=== PATIENT | female | born 1950 | race Caucasian/White ===

== ENCOUNTER 2017-08-18 21:55 | Inpatient (IN) | payer MEDICARE, OTHER ==
[2017-08-18 22:35] LABS: #Basophils 0.1 thou/uL (0.0-0.2); #Eosinphils 0.1 thou/uL (0.0-0.7); #Lymphocytes 1.8 thou/uL (1.20-3.40); #Monocytes 0.5 thou/uL (0.11-0.59); #Neutrophils 3.1 thou/uL (1.40-6.50); %Basophils 0.9 % (0.0-1.0); %Eosinophils 2.1 % (0.0-10.0); %Lymphocytes 32.7 % (21.0-51.0); %Monocytes 9.2 % (0.0-10.0); Hematocrit 46.9 % (36.0-47.0); Mean Platelet Volume 8.3 fL (7.4-10.4); Red Blood Cell (RBC) Count 4.66 mill/uL (4.20-5.40); White Blood Cell (WBC) Count 5.6 thou/uL (4.8-10.8)
[2017-08-18] MEDS ORDERED: Diltiazem 125 MG/25 ML ONE (22:47)
[2017-08-18 22:58] LABS: ALT (SGPT) 23 U/L (8-55); AST (SGOT) 21 U/L (5-34); Alkaline Phosphatase 79 U/L (40-150); Anion Gap 14 mmol/L (10-20); BUN (Urea Nitrogen) 22 mg/dL (9.8-20.1); Bilirubin, Total 0.5 mg/dL (0.2-1.2); CK (CPK) 56 U/L (29-168); Calc. Creatinine Clearance 0 mL/min (70-130); Calcium 9.9 mg/dL (7.8-10.44); Carbon Dioxide 24 mmol/L (23-31); Chloride 111 mmol/L (98-107); Estimated GFR-MDRD 72; Protein, Total 6.9 g/dL (6.0-8.3)
[2017-08-18] MEDS ORDERED: Diltiazem HCl 125 MG, Admixture Fee 1 EACH in Sodium Chloride 0.9% 100 ML SLOW IVP SCH (23:00)
--- NOTE | 2017-08-18 23:01 | RAD ---
AP VIEW OF THE CHEST 08/18/17 INDICATION: Chest pain. COMPARISON: Prior exam dated 06/01/16. IMPRESSION: Mild left basilar atelectasis. Remainder of the examination is within normal limits. COMMENTS: Right lung is clear. The cardiomediastinal silhouette is within normal limits. There is subsegmental atelectasis within the left lung base. No acute osseous abnormality is evident. POS: [facility]
[2017-08-18 23:21] LABS: Bilirubin Negative (Negative); Blood, Urine Negative (Negative); Glucose, Urine (Dipstick) Negative (Negative); Ketone, Urine 15 mg/dL (Negative); Nitrite Negative (Negative); Protein, Urine (Dipstick) Negative (Neg-Trace); Urobilinogen 0.2 mg/dL (0.2-1.0)
[2017-08-18 23:23] LABS: Bacteria/HPF None Seen HPF (None Seen); Hyaline Casts/LPF 0-3 HYALINE CAST LPF (0-3 Hyaline); RBC/HPF 0-3 HPF (0-3); Squamous Epithelial 0-3 HPF (0-3)
[2017-08-19] MEDS ORDERED: Acetaminophen 325 MG TAB PO PRN (01:46)
[2017-08-19] MEDS ORDERED: Ondansetron HCl/PF 4 MG/2 ML Vial IVP PRN (01:46)
[2017-08-19] MEDS ORDERED: Ondansetron ODT 4 MG TAB SL PRN (01:46)
[2017-08-19 01:59] VITALS: BMI 36.8
[2017-08-19 02:02] LABS: Troponin I 0.048 ng/mL (< 0.028)
[2017-08-19 05:11] LABS: Troponin I 0.073 ng/mL (< 0.028)
[2017-08-19] MEDS: Levothyroxine Sodium 100 MCG TAB PO SCH (05:43)
--- NOTE | 2017-08-19 07:32 | HP-2 ---
DATE OF ADMISSION: 08/19/2017 DATE OF SERVICE: 08/19/2017 ATTENDING AND CO-SIGNER: Dr. Montes. CODE STATUS: FULL. PRIMARY CARE PHYSICIAN: Dr. Voss. RESIDENT: Dr. Adrianne Gibson. HISTORIAN: Patient. CHIEF COMPLAINT: Atrial fibrillation and palpitations. HISTORY OF PRESENT ILLNESS: This is a 67-year-old female with a history of chronic atrial fibrillation with rapid ventricular response, complains of palpitations and chest pain. The patient says she took 2 baby aspirins at home , which did relieve some of the chest pain. She also endorses a headache, but denies shortness of breath. She also endorses a recent upper respiratory tract infection and some subjective fevers. The patient says with the chest pain, she also had sharp jaw pain. She describes the chest pain as shooting and extending down her arm. She says she has had a stress test done in the past. The patient says that sometimes if her TSH level was elevated, can trigger her atrial fibrillation. ER: The patient received 20 mg IV push of diltiazem and then was placed on diltiazem drip at 5 mg per hour. PAST MEDICAL HISTORY: The patient has history of atrial fibrillation with RVR, lipedema and secondary lymphedema and hypothyroidism. PAST SURGICAL HISTORY: Appendectomy, cholecystectomy, and tonsillectomy. ALLERGIES: PHENERGAN. MEDICATIONS: Temazepam, celecoxib, Eliquis, sotalol, levothyroxine, cyclobenzaprine, cranberry juice. SOCIAL HISTORY: Denies tobacco, alcohol, and drug use. REVIEW OF SYSTEMS: General: Denies fevers and chills. Endorses URI symptoms. Cardiovascular: Denies chest pain, palpitation. Respiratory: Less shortness of breath. Endorses some cough, congestion. Gastrointestinal: Denies nausea, vomiting. Genitourinary: Denies incontinence or dysuria. Neurologic: Denies weakness or numbness. Psychiatric: Denies anxiety or depression. PHYSICAL EXAMINATION: VITAL SIGNS: Blood pressure 133/76, pulse of 105, ranging from 87-130, T-max 97.6, pulse ox 95% on room air, current weight 117 kilograms. GENERAL: Alert and oriented x4, no apparent distress, well-developed, well- nourished, obese, appropriately interactive. EYES: Pupils equal, round, and reactive to light and accommodation. Extraocular muscles intact. ENT: Nasal mucosa within normal limits. NECK: Supple, no lymphadenopathy, no thyromegaly. CARDIOVASCULAR: Regular rate and rhythm. No murmur, rub or gallop. A 2+ pedal and radial pulses. RESPIRATORY: Normal effort, no retractions, clear to auscultation bilaterally. ABDOMEN: Soft, nontender to palpation. Bowel sounds in all 4 quadrants. No masses or distention. MUSCULOSKELETAL: Not within normal limits. The patient has lipedema and secondary lymphedema. NEUROLOGIC: No focal deficits. LABORATORY DATA: CBC: White blood cell count 5.6, hemoglobin 15.4, hematocrit 46.9, platelets 222. CMP: Sodium 145, potassium 4, chloride 111, bicarbonate 24, BUN 22, creatinine 0.8, glucose 93, GFR 72. CK 56, CK-MB 1.2, troponin 0.010. Lipase 51. UA specific gravity 1.013. Blood, protein, nitrites negative. Leukocyte esterase small, ketones 15, white blood cells 7-10, bacteria none, squamous 0-3. Coag: INR 1.1, PT 14, PTT 42, and TSH 1.7. IMAGING: EKG fibrillation with rapid ventricular response. Chest x-ray, mild left basilar atelectasis. ASSESSMENT AND PLAN: This is a 67-year-old female with a past medical history of atrial fibrillation with rapid ventricular response, admitted for atrial fibrillation with rapid ventricular response. 1.Atrial Fibrillation with RVR: The patient was admitted overnight and will be monitored in tele. The patient was placed on a diltiazem drip, which was titrated up from 5 to 7.5 and now to 10. We started the patient on her home with medicine of [facility]. We will attempt to titrate the patient off the drip if her heart rate is within normal limits and there is no evidence of rapid ventricular response. 2. Hypothyroidism. We will restart patient's home medications of levothyroxine. 3. Lipedema. We will monitor. 4. Lymphedema. We will continue to monitor. Disposition and length of stay: 2 days. Symptomatic medications will be provided. History and physical exam as well as management discussed with Dr. Montes. NESS
[2017-08-19] MEDS: Apixaban 5 MG TAB PO SCH ×2 (08:12→20:34)
--- NOTE | 2017-08-19 08:13 | CT ---
PRELIMINARY REPORT/[facility]/EMERGENCY AFTER HOURS PROCEDURE: EXAM: CT Angiography Chest With Intravenous Contrast CLINICAL HISTORY: 67 years old, female; Pain and signs and symptoms; Cough; Symptoms not specified; Chest pain; Patient HX: Er 25; F67 presents to ed C/O cp, onset approx. 1900. At onset, pt was watching tv and working o n emails. Pt took asa x 2. Reports she was clutching chest with the pain. Associated with WISE. She too k her nighttime medications early. Similar pmh x 3. Pt notes recent uri (with fever). Denies SOB. TECHNIQUE: Axial computed tomographic angiography images of the chest with intravenous contrast using pulmonary embolism protocol. CONTRAST: 63 mL of ISO 370 administered intravenously. COMPARISON: No relevant prior studies available. FINDINGS: Pulmonary arteries: No acute findings. No evidence of pulmonary embolism. Vasculature: No acute findings. No thoracic aortic aneurysm. Lungs: No mass. No consolidation. Few tiny nonspecific nodular opacities. Mild basilar and peripheral scarring. Pleural space: No acute findings. No significant effusion. No pneumothorax. Heart: No acute findings. No cardiomegaly. No significant pericardial effusion. Bones/joints: No acute fracture. No dislocation. Soft tissues: No acute findings. Lymph nodes: No acute findings. No enlarged lymph nodes. IMPRESSION: No evidence of pulmonary embolism. Thank you for allowing us to participate in the care of your patient. Dictated and Authenticated by: Rodney Huber MD 08/19/2017 1:06 AM Central Time ([place] & [place]) FINAL REPORT EMERGENT AFTER HOURS CT ANGIO OF CHEST PERFORMED WITH INTRAVENOUS CONTRAST ENHANCEMENT WITH 3D RECONS TRUCTIONS: HISTORY: Chest pain. FINDINGS: The lungs are clear of any infiltrative process. No pleural effusions. No significant mediastinal or hilar adenopathy. The thoracic aorta is normal in caliber. There is good pulmonary artery opacification. There is no CT evidence for pulmonary embolus. Visualized liver parenchyma shows no findings. Gallbladder has been removed. IMPRESSION: 1. No CT evidence of pulmonary embolus. 2. This report is in agreement with the temporary report issued by [facility]. POS: [facility]
[2017-08-19 08:26] LABS: Troponin I 0.052 ng/mL (< 0.028)
[2017-08-19] MEDS ORDERED: Aspirin 325 MG TAB PO SCH (09:00)
[2017-08-19] MEDS ORDERED: CeleCOXIB 100 MG CAP PO SCH (09:00)
[2017-08-19] MEDS ORDERED: Diltiazem 125 MG in Sodium Chloride 0.9% 100 ML IVPB SCH (11:00)
--- NOTE | 2017-08-19 12:25 | HP ---
I have reviewed the history and physical of Dr. Adrianne Gibson and agreed with her assessment and plan. Briefly, Ms. Rivas is a very pleasant 67-year-old white female patient who has a history of recurrent atrial fibrillation. She presented to our emergency room with some shortness of breath and was noted to have atrial fibrillation with RVR. She has been admitted and is currently on a diltiazem infusio n. She denies any significant shortness of breath at this time, although she has had some chest pain occurring at rest. Of note, it is the fact that she several hours prior to this episode took a coug h and cold medication that contained phenylephrine. PHYSICAL EXAMINATION: VITAL SIGNS: Her blood pressure is 130/70, her pulse rate is 120 and irregularly irregular. She is afebrile. Her pulse ox room air is 95%. GENERAL: Ms. Rivas is very pleasant, awake, alert, in no distress. No chest pain, no shortness of br eath. EAR, NOSE, AND THROAT: Clear. NECK: Supple, no JVD. CARDIAC: PMI is in the fifth intercostal space. Rhythm is irregularly irregular with a rate of appr oximately 120. LUNGS: Clear to auscultation. ABDOMEN: Flat and soft without guarding, rebound or rigidity. NEUROLOGIC: She has no focal deficits. LABORATORY DATA: CBC: White count is 5,600, hemoglobin 15.4. Her sodium is 145, potassium 4, chlor cody 111, bicarbonate 24, BUN 22, creatinine 0.8, and glucose is 93. Her troponins are trending negat kyra. ASSESSMENT: Atrial fibrillation with rapid ventricular response. PLAN: She is already on a diltiazem drip. She had been on sotalol prior to this episode. We will a lso consult Cardiology. She has held discussions in the past with her PCP and medical staff coordinator regarding the possibility of ablation and this will be discussed further with Cardiology.
[2017-08-19] MEDS ORDERED: Iopamidol 370 76% 100 ML VIAL ONE (13:42)
[2017-08-19] MEDS ORDERED: Sotalol HCl 80 MG TAB PO SCH (15:00)
--- NOTE | 2017-08-19 15:47 | CON ---
DATE OF CONSULTATION: 08/19/2017 REASON FOR CONSULTATION: Atrial fibrillation with RVR. PRIMARY FOREST ECOLOGY PROFESSOR: Yasmani Robbins M.D. REFERRING PROVIDER: Amandeep Montes M.D. HISTORY OF PRESENT ILLNESS: Ms. Rivas is a very pleasant 61-year-old woman with a history of paroxysm al atrial fibrillation. She has been seen and evaluated by EP in addition to Dr. Yasmani Robbins. She has been on sotalol in addition to anticoagulation therapy. She presents with atrial fibrillation w ith RVR. She did have palpitations. Her last episode for her account was one year ago. She was see n and evaluated by EP 6 months ago and was told to follow up in a year given how well she had been do ing on sotalol. PAST MEDICAL HISTORY: Paroxysmal atrial fibrillation and lymphedema. PAST SURGICAL HISTORY: Appendectomy, cholecystectomy, and tonsillectomy. ALLERGIES: PHENERGAN. HOME MEDICATIONS: Include Eliquis, sotalol, levothyroxine, cyclobenzaprine, cranberry juice. SOCIAL HISTORY: No current tobacco or alcohol use. REVIEW OF SYSTEMS: Ten point review of systems is reviewed and as above, otherwise negative. PHYSICAL EXAMINATION: GENERAL: Patient is a pleasant female who is in no acute distress. The patient appears her stated a ge. VITAL SIGNS: Blood pressure 118/75, pulse 84, temperature 98.2. NEUROLOGIC: The patient is alert and oriented times 3 with no focal neurologic deficits. HEENT: Sclerae without icterus. Mouth has moist mucous membranes with normal pallor. NECK: No JVD. Carotid upstroke brisk. No bruits bilaterally. LUNGS: Clear to auscultation with unlabored respirations. BACK: No scoliosis or kyphosis. CARDIAC: Irregularly irregular. ABDOMEN: Soft, nontender, nondistended. No peritoneal signs present. No hepatosplenomegaly. No ab normal striae. EXTREMITIES: 2+ femoral and 2+ dorsalis pedis pulses. No cyanosis, clubbing, or edema. SKIN: No gross abnormalities. PERTINENT LABORATORY DATA: Hemoglobin 15.4, creatinine 0.8, peak troponin 0.052. IMPRESSION AND PLAN: 1. Atrial fibrillation with rapid ventricular response. 2. Patient currently is on IV Cardizem at 12.5 mg per hour. Between my visit and this dictation, andres fermin has converted back to sinus rhythm. We will stop her IV Cardizem. It would be okay from my standp oint to monitor for several hours and discharge home. She states she has been on Eliquis in addition to sotalol 80 mg 1 p.o. b.i.d. We will continue. Plan is to follow up with Dr. Yasmani Robbins in th e next 1-2 weeks. May consider atrial fibrillation ablation versus continued medical therapy.
[2017-08-19] MEDS: Sotalol HCl 80 MG TAB PO SCH (20:34)
[2017-08-19] MEDS: Cyclobenzaprine 10 MG TAB PO SCH (20:34)
[2017-08-19] MEDS: Temazepam 15 MG CAP PO SCH (20:34)
[2017-08-19] MEDS: CeleCOXIB 100 MG CAP PO SCH (20:34)
[2017-08-19] MEDS: Acetaminophen 325 MG TAB PO PRN (23:15)
[2017-08-20] MEDS: Acetaminophen 325 MG TAB PO PRN ×2 (04:33→09:43)
[2017-08-20] MEDS: Levothyroxine Sodium 100 MCG TAB PO SCH (04:33)
[2017-08-20 04:57] LABS: #Eosinphils 0.1 thou/uL (0.0-0.7); #Lymphocytes 1.4 thou/uL (1.20-3.40); #Monocytes 0.6 thou/uL (0.11-0.59); #Neutrophils 2.7 thou/uL (1.40-6.50); %Eosinophils 2.3 % (0.0-10.0); %Monocytes 12.3 % (0.0-10.0); Hematocrit 44.4 % (36.0-47.0); Mean Platelet Volume 8.1 fL (7.4-10.4); Red Blood Cell (RBC) Count 4.38 mill/uL (4.20-5.40); White Blood Cell (WBC) Count 4.8 thou/uL (4.8-10.8)
[2017-08-20 05:07] LABS: Anion Gap 12 mmol/L (10-20); BUN (Urea Nitrogen) 26 mg/dL (9.8-20.1); Calc. Creatinine Clearance 154 mL/min (70-130); Calcium 8.9 mg/dL (7.8-10.44); Carbon Dioxide 21 mmol/L (23-31); Chloride 110 mmol/L (98-107); Estimated GFR-MDRD 85
--- NOTE | 2017-08-20 06:15 | PDOC.FM ---
- Subjective Subjective: Patient states she had a good night and did not experience any further palpitations. She said she is fighting a cough. She denies sob, chest pain, and n/v/d. She is ready to go home today. - Objective Vital Signs & Weight: Vital Signs (12 hours) Temp Pulse Resp BP BP Pulse Ox 08/20/17 04:36 94 L 08/20/17 04:31 97.4 F L 65 18 118/63 96 08/19/17 20:34 74 133/61 08/19/17 19:47 98.3 F 74 16 08/19/17 19:22 98.3 F 74 16 133/61 94 L I&O: 08/18/17 08/19/17 08/20/17 06:59 06:59 06:59 Intake Total 420 Output Total 600 Balance -180 Result Diagrams: 08/20/17 04:30 08/20/17 04:30 <Rigoberto Horowitz - Last Filed: 08/20/17 08:00> - Objective Vital Signs & Weight: Vital Signs (12 hours) Temp Pulse Resp BP Pulse Ox 08/20/17 09:42 60 08/20/17 08:00 97.4 F L 60 16 109/64 96 08/20/17 04:36 94 L 08/20/17 04:31 97.4 F L 65 18 118/63 96 I&O: 08/19/17 08/20/17 08/21/17 06:59 06:59 06:59 Intake Total 420 Output Total 600 Balance -180 Result Diagrams: 08/20/17 04:30 08/20/17 04:30 <Uri Gan - Last Filed: 08/20/17 11:10> Phys Exam - Physical Examination Constitutional: NAD HEENT: moist MMs Neck: no nodes, no JVD, supple Respiratory: no wheezing, clear to auscultation bilateral Cardiovascular: RRR, no significant murmur Gastrointestinal: soft, non-tender, no distention, positive bowel sounds Musculoskeletal: edema present Edema present on lower extremities except for feet. Neurological: normal sensation, moves all 4 limbs Psychiatric: normal affect, A&O x 3 Skin: no rash <Rigoberto Horowitz - Last Filed: 08/20/17 08:00> Dx/Plan (1) Atrial fibrillation with controlled ventricular response Code(s): I48.91 - UNSPECIFIED ATRIAL FIBRILLATION Status: Acute Plan: -s/p diltiazem drip with rate control. -No events on Tele overnight. -Continue Sotolol and Eliquis -Likely discharge today. -Follow up with Dr. Robbins as outpatient (2) Hypothyroidism Code(s): E03.9 - HYPOTHYROIDISM, UNSPECIFIED Status: Acute Plan: -TSH 1.7 -Under good control -Continue Levothyroxine. (3) Elevated troponin Code(s): R74.8 - ABNORMAL LEVELS OF OTHER SERUM ENZYMES Status: Acute Plan: -Trended down -Likely demand ischemia -No further workup unless becomes symptomatic. - Plan Plan: Patient will likely be discharged today with close follow up with Dr. Robbins. <Rigoberto Horowitz - Last Filed: 08/20/17 08:00> Attending Addendum - Attending Addendum I personally evaluated the patient and discussed the management with Dr. Horowitz I agree with the History, Examination, Assessment and Plan documented above with any addition or exceptions noted below. Afib with RVR. This is third or fourth time. She was on sotolal at home. Dr. Robbins has seen her today and is considering a change to flecainide. She is also thinking about an ablation. She is clinically stable now and may go home unless we are starting flecainide. We will need to watch her overnight because of potential pro arrythmia. <Uri Gan - Last Filed: 08/20/17 11:10>
[2017-08-20] MEDS ORDERED: FLU VACC TS2017-18 (>65YR) 0.5 ML SYRINGE IM ONE (09:00)
[2017-08-20] MEDS: Sotalol HCl 80 MG TAB PO SCH ×2 (09:42→20:56)
[2017-08-20] MEDS: Apixaban 5 MG TAB PO SCH ×2 (09:43→20:56)
[2017-08-20] MEDS: Benzonatate 100 MG CAP PO PRN ×2 (09:45→15:05)
[2017-08-20 20:21] VITALS: BP 132/72; TEMP 98.1
[2017-08-20] MEDS: CeleCOXIB 100 MG CAP PO SCH (20:56)
[2017-08-20] MEDS: Cyclobenzaprine 10 MG TAB PO SCH (20:56)
[2017-08-20] MEDS: Temazepam 15 MG CAP PO SCH (20:56)
--- NOTE | 2017-08-20 23:06 | CON ---
DATE OF SERVICE: 08/20/2017 ELECTROPHYSIOLOGY CONSULTATION REPORT REFERRING PHYSICIAN: Dr. Robbins. I am seeing Mrs. Rivas at our [facility] telemetry floor as an electrophysiology pre owned sales consultant for the following problems are: 1. Paroxysmal atrial fibrillation. A. Reasonable suppression in the past with sotalol. B. Prior episode with hyperthyroidism, but now thyroid is normal. 2. Oral anticoagulation with apixaban. 3. History of structurally normal heart with LVEF 55-60%, mild MR and TR on echo in 06/03/2016. 4. Chronic lymphedema. 5. History of pancreatitis and migraine headaches. 6. Irritable bowel syndrome. ALLERGIES: SULFA DRUGS, BEE STINGS and MELONS. MEDICATIONS AT HOME: Included apixaban 5 mg twice a day, sotalol 80 mg twice a day. cyclobenzaprine, Flexeril 10 mg p.o. at bedtime, temazepam 50 mg p.o. at bedtime , levothyroxine 100 mcg a day, celecoxib 100 mg p.o. at bedtime. SUBJECTIVE: Mrs. Rivas is here with an episode of palpitation and some chest tightness sensations, which started just on day of admission on 08/19/2017. She has had an erratic schedule with lots of travelling around [facility] and she may have made some doses of her sotalol, but she did take her evening doses for sure. She also took her Eliquis for that most of the time. She had some atypical chest pains, which are not completely resolved. She spontaneously converted back to sinus rhythm with continued sotalol medication. She had no loss of consciousness. No stroke-like symptoms. No bleeding issues are documented. No fever, chills, or coughs. REVIEW OF SYSTEM: The rest of the 12-point review of system otherwise unremarkable. PAST MEDICAL HISTORY: As above. Again, she has history of hypothyroidism in the past. She had some over supplementation issues also leading to her atrial fibrillation episodes in the past. SOCIAL HISTORY: Patient denies smoking, ETOH or drug use. She . is in the room. Does drink alcohol on social basis only. FAMILY HISTORY: Significant for mother having sinus node disease and atrial fibrillation and she required a pacemaker in the past. She also has history of breast cancer. Her mother . Father had a bronchiectasia. OBJECTIVE: VITAL SIGNS: Blood pressure is 133/73, heart rate 71, respirations 16, temperature 98.6 degrees Fahrenheit. GENERAL: She is alert and oriented woman in no apparent distress. NECK: Supple. Jugular veins are not distended. CHEST: Coarse without crackles. CARDIOVASCULAR: Heart sounds are regular to rate and rhythm. No murmur or gallop. ABDOMEN: Benign. Bowel sounds are positive. EXTREMITIES: Lower extremities without edema, clubbing, or cyanosis. Pulses are adequate. NEUROLOGIC: Patient is nonfocal. MUSCULOSKELETAL: No joint swelling or deformities. SKIN: Without rash. DATABASE: The EKG is reviewed initially reveals atrial fibrillation, occasionally coarse atrial fibrillation with rapid rates. No definite typical flutter is documented. Initial EKG shows difficulty measured QT interval at 504 milliseconds. She likely over estimation of the actual base. Subsequent EKG reveals sinus rhythm with QT interval 400 milliseconds at a rate of 80 beats per minute. QTC documented to be 0.44. LABORATORY DATA: White count 4.8, hemoglobin 14.4, platelet count is 203. INR is 1.1. Sodium 139, potassium 3.5, BUN is 26, creatinine is 0.69. Troponin I is 0.01, 0.048, 0.073, and 0.052 consecutively. ASSESSMENT AND PLAN: Mrs. Rivas is a pleasant 67-year-old woman with prior history of paroxysmal atrial arrhythmias previously reasonably well suppressed with sotalol. Although, now she is presenting with breakthrough episodes. On further questioning, she might have missed some of the dosages and she took some cold medicine also, which both could have contributed to her episode. She , though, spontaneously converted to sinus rhythm. She has slight chest pains and troponin levels were borderline elevated, but still below to myocardial infarction levels. She has no evidence of proarrhythmia, she continues to be anticoagulated with Eliquis. I discussed the treatment options with her. At this point, sotalol have not completely suppressed her. We have options of increasing sotalol further, although that would put her out to risk of further side effects from sotalol possibly proarrhythmias. Alternatively, she could be switched to flecainide, although with a borderline troponin changes, stress test would be reasonable prior to initiating this. She actually planned to have a stress test with Dr. Robbins. We also discussed the option of pulmonary venous isolation procedure. She is strongly considering this possibly after the first of the year. We will start making some tentative arrangements for that. I would like to see her back also after her stress test and Franchesca in our office. Thank you again for allowing me to participate in the care of this patient. NESS
--- NOTE | 2017-08-21 06:36 | DIS-2 ---
DATE OF ADMISSION: 08/19/2017 DATE OF DISCHARGE: 08/20/2017 ADMITTING ATTENDING: Dr. Montes. DISCHARGE ATTENDING: Dr. Gan. CONSULTATIONS: Cardiology, Dr. Love. PROCEDURES: None. PRIMARY DIAGNOSES: 1. Atrial fibrillation with rapid ventricular response. 2. Elevated troponin. SECONDARY DIAGNOSES: 1. Hypothyroidism. 2. Lipedema. DISCHARGE MEDICATIONS: 1. Flexeril 10 mg. 2. Eliquis 5 mg. 3. Temazepam 15 mg. 4. Levothyroxine 100 mcg. 5. Celecoxib 100 mg. 6. Sotalol 80 mg b.i.d. 7. Tessalon 100 mg p.r.n. DISCONTINUED MEDICATIONS: None. HISTORY OF PRESENT ILLNESS AND HOSPITAL COURSE: This is a 67-year-old female with history of chronic atrial fibrillation with rapid ventricular response, complained of palpitations and chest pain. The patient said she took 2 baby aspirins at home, which did relieve some of the chest pain. She also e ndorses a headache, but denies shortness of breath. She also endorses a recent upper respiratory tra ct infection and some subjective fevers. The patient says that with the chest pain and she also has sharp jaw pain. She described the chest pain as shooting and extending down her arm. She says she h as had stress test done in the past. The patient says that sometimes if her TSH level was elevated, she can trigger her atrial fibrillation. She also was using [id number] cough and cold medicine , and she believes that might have played a part in her slipping back into atrial fibrillation. Duri ng the hospital stay, she did convert back to normal sinus rhythm and did not have any other acute ev ents overnight. Her troponins ranged from 0.01 to as high as 0.073. Other notable lab values, her c holesterol of 210, MCV of 101. The patient otherwise tolerated the hospitalization well, had no othe r complications. The patient was seen by her clinical care leader, Dr. Robbins with Cardiology and he recom mended to see an admissions consultant. The admissions consultant, Dr. Seth came and saw the patient and recommended that she stay on sotalol going forward with a discussion to have an atrial ablation in t he future. The patient had no other problems during the hospitalization and was discharged in an britney ropriate condition. DISPOSITION: Stable. DISCHARGE INSTRUCTIONS: 1. Location: She will be discharged home into her own care. 2. Diet: Diet will be a regular diet with no restrictions. 3. Activity: Activity will be as tolerated with no restrictions. 4. Followup: Should be with her primary care provider, Dr. Marcelo Voss in 1 week and as well as he r clinical care leader, Dr. Robbins, in 1 week.
--- NOTE | 2017-09-08 14:21 | EKG ---
Test Reason : CP Blood Pressure : / mmHG Vent. Rate : 146 BPM Atrial Rate : 150 BPM P-R Int : 000 ms QRS Dur : 078 ms QT Int : 324 ms P-R-T Axes : 000 056 050 degrees QTc Int : 504 ms Atrial fibrillation with rapid ventricular response No ST/T wave changes Abnormal ECG Confirmed by EMMA MCGOVERN DO ([id number]), fan mail editor MASSIEL MONTES DE OCA ([id number]) on 09/08/2017 2:20:55 PM Referred By: Confirmed By:EMMA MCGOVERN DO
== END 2017-08-20 21:26 | disposition home or self-care (01) | DRG 310 ==
LOC: ERS 21:55 → 2SW 08-19 00:10 → OBSVTOIN 08-19 10:42
PROVIDERS: ADMIT Family Medicine; ATTEND Family Medicine
DX: I48.0 Paroxysmal atrial fibrillation (principal); E03.9 Hypothyroidism, unspecified; I48.2 Chronic atrial fibrillation; R74.8 Abnormal levels of other serum enzymes; Z79.01 Long term (current) use of anticoagulants; R60.9 Edema, unspecified; I89.0 Lymphedema, not elsewhere classified; G43.909 Migraine, unspecified, not intractable, without status migrainosus; K58.9 Irritable bowel syndrome, unspecified; G47.00 Insomnia, unspecified; Z23 Encounter for immunization
CPT/HCPCS: 36415; 71010; 71275; 80048; 80053; 80061; 81003; 81015; 82553; 83690; 84443; 84484; 85025; 85610; 85730; 87086; 90471; 90682; 93005; 96365; 96366; 96376; A4216; G0008; J7050; Q2036

== ENCOUNTER 2017-10-24 09:11 | Outpatient (CLI) | payer MEDICARE, OTHER ==
--- NOTE | 2017-10-24 12:41 | CT ---
CT ANGIOGRAM THORAX WITH AND WITHOUT IV CONTRAST AND 3D RECONSTRUCTIONS FOR PULMONARY VEIN MAPPIN10/24/2017 HISTORY: Shortness of breath. Atrial fibrillation. Preoperative evaluation for EP. FINDINGS: The thoracic aorta is well opacified and normal in caliber without evidence of an aortic dissection. Minimal vascular calcifications are seen in the aortic arch. The left atrium and pulmonary veins ar e also opacified on this exam. No mediastinal lymphadenopathy is seen on this exam. The visualized lungs are clear. The visualized osseous structures have a normal CT appearance. IMPRESSION: 1. There is opacification of the pulmonary veins. 2. Minimal vascular calcifications in the thoracic aorta, but the visualized thoracic aorta is nelly l in caliber without evidence of an aortic dissection. POS: [facility]
[2017-10-24] MEDS ORDERED: Iopamidol 370 76% 100 ML VIAL ONE (13:10)
== END 2017-10-24 09:12 | disposition home or self-care (01) ==
LOC: CT 09:11
PROVIDERS: ATTEND Internal Medicine Cardiovascular Disease
DX: I48.0 Paroxysmal atrial fibrillation (principal)
CPT/HCPCS: 36415; 71275; 82565; 84520; 85027; 85610; 85730; 93005; 93010

== ENCOUNTER 2017-10-29 05:37 | Observation (INO) | payer MEDICARE, OTHER ==
[2017-10-29] MEDS ORDERED: Heparin 10,000 UNITS/1 ML VIAL ONE ×2 (06:40→06:49)
[2017-10-29] MEDS ORDERED: Fentanyl 100 MCG/2 ML VIAL ONE (06:40)
[2017-10-29] MEDS ORDERED: Phenylephrine HCL 10 MG/ML VIAL ONE (06:40)
[2017-10-29] MEDS ORDERED: Protamine Sulfate 50 MG/5 ML VIAL ONE (06:40)
[2017-10-29] MEDS ORDERED: Furosemide 20 MG/2 ML VIAL ONE (06:40)
[2017-10-29] MEDS ORDERED: Lidocaine 2% Jelly 5 ML TUBE ONE (06:57)
[2017-10-29] MEDS ORDERED: Heparin 25,000 units/D5W 500 ML ONE (09:13)
[2017-10-29] MEDS ORDERED: Isoproterenol 0.2 MG/1 ML AMP ONE ×3 (09:34→09:45)
[2017-10-29] MEDS ORDERED: traMADol HCl 50 MG TAB ONE (11:17)
[2017-10-29] MEDS ORDERED: Silver Sulfadiazine 1% Cream 50 GM JAR TOP PRN (11:26)
[2017-10-29] MEDS ORDERED: Acetaminophen 325 MG TAB PO PRN (11:26)
[2017-10-29] MEDS ORDERED: Nitroglycerin 0.4 MG TAB (25 Tab Bottle) SL PRN (11:26)
[2017-10-29] MEDS ORDERED: Ondansetron HCl/PF 4 MG/2 ML Vial IVP PRN (11:26)
[2017-10-29] MEDS ORDERED: Temazepam 15 MG CAP PO PRN (11:26)
[2017-10-29] MEDS ORDERED: Mag-Al 1200 mg/1200 mg/30 ML UDCUP PO PRN (11:26)
[2017-10-29] MEDS ORDERED: diphenhydrAMINE 25 MG CAP PO PRN (11:26)
[2017-10-29] MEDS ORDERED: Bisacodyl 5 MG TAB PO PRN (11:26)
[2017-10-29] MEDS ORDERED: Bisacodyl 10 MG SUPP PR PRN (11:26)
[2017-10-29] MEDS ORDERED: Ondansetron HCl/PF 4 MG/2 ML Vial ONE (12:09)
[2017-10-29] MEDS ORDERED: Glycopyrrolate 0.2 MG/ML 5 ML SYRINGE ONE (12:09)
[2017-10-29] MEDS ORDERED: Lidocaine 1% PF 5 ML VIAL ONE (12:09)
[2017-10-29] MEDS ORDERED: Propofol 200 MG/20 ML VIAL ONE (12:09)
[2017-10-29] MEDS ORDERED: PHENYLEPHRINE-NS 100 MCG/ML 10 ML SYRINGE ONE (12:09)
[2017-10-29] MEDS ORDERED: Dexamethasone 20 MG/5 ML VIAL ONE (12:09)
[2017-10-29] MEDS ORDERED: Heparin 10,000 UNITS/ 10 ML VIAL ONE (12:09)
[2017-10-29 14:13] VITALS: BMI 38.2
--- NOTE | 2017-10-29 14:32 | CCL ---
DATE OF PROCEDURE: 10/29/2017 Electrophysiological study and radiofrequency ablation of the procedure with pulmonary venous isolation. REFERRING PHYSICIAN: Dr. Robbins. REASON FOR PROCEDURE: Ms. Rivas is a 67-year-old woman who has a history of highly symptomatic paroxysmal atrial fibrillation. She is also on sotalol, which seems to be insufficient now to keep her in normal rhythm. She is here for pulmonary venous isolation procedure. DESCRIPTION OF PROCEDURE: The patient received deep sedation by Anesthesia specialist. The esophageal probe was also placed by them with esophageal temperatures monitored throughout the case to avoid excessive rise. The esophageal temperature achieved was 37 degrees. The right and left femoral venous area was prepped, draped and anesthetized using subcutaneous lidocaine. Under ultrasound guidance, both femoral veins were cannulated and on the left side, an 11 Yoruba short sheath was introduced through which an ice catheter was advanced to the right atrium for monitoring of the transseptal procedure and monitoring for effusions. This was on the left femoral vein. There also through a left femoral vein, a pathway sheath was advanced to the mid IVC and a duodecapolar catheter was advanced into the CS in the right atrial position. The His bundle was also found with this maneuver and HV was measured to be 41. Basic EP study was performed revealing sinus rhythm with cycle length of 850 milliseconds, MA 144, QRS 86, QT 446, AH 108, HV 41 millisecond. Sinus node recovery time was 1050, corrected sinus node recovery time was 200 milliseconds. AV Wenckebach cycle length was 280 milliseconds. VA Wenckebach cycle length was less than 400 milliseconds measured at the time of isuprel administration though. Concentrated retrograde VA conduction was seen. Atrial extrastimuli testing reveals AV lamar ERP of 600/260, no dual AV lamar physiology was present. Burst atrial pacing was performed after the pulmonary venous isolation procedure on isuprel and induced only transient atypical atrial flutter which self terminated. Following that through the right femoral vein excess site, a SL-1 transseptal catheter was used to cross the septum with the help of a Mclean needle with ice ultrasound monitoring x2. One of the access was exchanged over the wire garret Agilis sheath. Through these sheath, the standard deflectable 20 pole Lasso catheter was advanced to the left atrium and left atrial 3D map was obtained. Also a ThermoCool SF ST irrigated tip catheter was advanced to the left atrium and pulmonary venous isolation procedure was performed. Following that, isuprel was administered and no aortic conduction was seen throughout. Again, burst atrial pacing or induced transient atypical atrial flutter, no other atrial tachyarrhythmias are seen. Following that, [place] cardiac cine was revealing no change in cardiac silhouette and also ice catheter was advanced to the right ventricle for accessing the pericardial space, which found to have no effusion. The patient remained hemodynamically stable throughout the case. Throughout the case after transseptal IV heparin, boluses and drip was given to maintain ACT over 350 target. Following that, the sheaths were pulled after administration of protamine. The patient tolerated the procedure well, no complication noted. CONCLUSION: 1. Inducible atrial fibrillation noted. 2. Successful pulmonary venous isolation and eliminating inducibility atrial fibrillation. 3. LV pacing reveals no accessory pathway conduction. 4. No dual AV lamar physiology, normal sinus lamar and AV lamar function is documented, normal HV interval as well. PLAN: Routine postop care with Protonix, Eliquis, but stop sotalol unless recurrent tachycardia arrhythmias are seen. POS: WILLIE ARZOLA
[2017-10-29 14:49] LABS: #Lymphocytes 0.9 thou/uL (1.20-3.40); #Monocytes 0.2 thou/uL (0.11-0.59); #Neutrophils 5.1 thou/uL (1.40-6.50); %Basophils 0.5 % (0.0-1.0); %Eosinophils 0.5 % (0.0-10.0); %Lymphocytes 13.8 % (21.0-51.0); %Monocytes 3.3 % (0.0-10.0); %Neutrophils 81.9 % (42.0-75.0); Hemoglobin 14.7 g/dL (12.0-16.0); Mean Corpuscular HGB CONC 32.5 g/dL (32.0-36.0); Mean Corpuscular Hemoglobin 32.5 pg (27.0-31.0); Mean Platelet Volume 8.3 fL (7.4-10.4); Platelet Count 181 thou/uL (130-400); RBC Distribution Width 11.8 % (11.5-14.5); Red Blood Cell (RBC) Count 4.51 mill/uL (4.20-5.40); White Blood Cell (WBC) Count 6.2 thou/uL (4.8-10.8)
[2017-10-29 14:56] LABS: INR-International Normal Ratio 1.1
[2017-10-29 14:57] LABS: PTT 51.2 SEC (22.9-36.1)
[2017-10-29 15:25] LABS: Anion Gap 12 mmol/L (10-20); BUN (Urea Nitrogen) 18 mg/dL (9.8-20.1); Calc. Creatinine Clearance 156 mL/min (70-130); Carbon Dioxide 21 mmol/L (23-31); Chloride 112 mmol/L (98-107); Estimated GFR-MDRD 85; Glucose 106 mg/dL (80-115); Sodium 140 mmol/L (136-145)
[2017-10-29] MEDS ORDERED: Apixaban 5 MG TAB PO SCH (18:00)
[2017-10-29] MEDS: Sucralfate 1 GM/10 ML UDCUP PO SCH ×2 (18:45→20:44)
[2017-10-29] MEDS: traMADol HCl 50 MG TAB PO PRN ×2 (19:33→23:35)
[2017-10-29] MEDS: Sotalol HCl 80 MG TAB PO SCH (20:43)
[2017-10-29] MEDS ORDERED: Temazepam 15 MG CAP PO SCH (21:00)
[2017-10-29] MEDS ORDERED: CeleCOXIB 100 MG CAP PO SCH (21:00)
[2017-10-29] MEDS ORDERED: Cyclobenzaprine 10 MG TAB PO SCH (21:00)
[2017-10-30] MEDS: traMADol HCl 50 MG TAB PO PRN ×2 (05:32→15:11)
[2017-10-30] MEDS ORDERED: Levothyroxine 150 MCG TAB PO SCH (06:00)
[2017-10-30] MEDS: Sucralfate 1 GM/10 ML UDCUP PO SCH ×2 (08:55→11:50)
[2017-10-30] MEDS: Sotalol HCl 80 MG TAB PO SCH (08:55)
[2017-10-30] MEDS ORDERED: Apixaban 5 MG TAB PO SCH (09:00)
[2017-10-30 12:00] VITALS: BP 119/62; TEMP 97.8
[2017-10-30] MEDS ORDERED: Sucralfate 1 GM/10 ML UDCUP PO SCH (14:38)
--- NOTE | 2017-10-31 00:41 | DIS ---
ADMISSION DATE: 10/29/2017 DISCHARGE DATE: 10/30/2017 ATTENDING PHYSICIAN: Dr. Ryan Seth dictated by Jennifer Kennedy, Nurse Practitioner. CONDITION ON DISCHARGE: Stable. FINAL DIAGNOSES: Atrial fibrillation, status post successful pulmonary venous isolation. PROCEDURE: Electrophysiological study and radiofrequency ablation with pulmonary venous isolation. HISTORY OF PRESENT ILLNESS: Ms. Rivas is a 67-year-old woman with a history of paroxysmal atrial fibrillation. She was previously medically managed with sotalol for which her arrhythmia was inadequately suppressed. She had an elective pulmonary venous isolation ablation performed as an outpatient and has been monitored overnight. During her study, she was found to have inducible atrial fibrillation and underwent successful isolation eliminating her atrial fibrillation. No accessory pathway conduction and no dual AV lamar physiology seen Normal sinus lamar function, AV lamar function was documented with a normal HV interval as well. Today, we find Ms. Rivas doing well. She has not had any recurrence of her arrhythmia and is maintained in a sinus mechanism. Her rates are somewhat elevated in the 90 to 100 range and for this, we will begin a low dose beta kevon therapy in place of her sotalol. She is not having any complication at bilateral groin sites and dressings are clean, dry, and intact. She has been up walking around and is mobile without issue. Of note, she is having some aching in her chest that pushes through to her shoulder and up towards her neck. This is aggravated by deep breathing and is easily reproducible. The patient was instructed to follow up should this worsen or persist beyond a week. DISCHARGE MEDICATIONS: Metoprolol succinate 25 mg p.o. daily, Protonix 40 mg p.o. daily for 2 weeks, and Carafate 1 gram tabs p.o. a.c. and at bedtime for 2 weeks in addition to continuing her home medications, Eliquis 5 mg p.o. b.i.d., celecoxib 100 mg p.o. at bedtime, cyclobenzaprine 10 mg at bedtime p.o., levothyroxine 150 mcg p.o. daily, temazepam 15 mg p.o. at bedtime. Patient is to discontinue sotalol at this time. DISCHARGE INSTRUCTIONS: No lifting over 10 pounds for the following week. Otherwise, no activity restrictions. Patient will leave bandages over her bilateral groin sites for the next 24-hours and then we will removed. No soaking baths for the next week, but is okay to shower. She will follow up in clinic in 6 weeks within previously scheduled appointment. [facility] office will be sending an event monitor and will be contacting the patient with instructions for its use. These instructions have been discussed with the patient and are included in the discharge orders. NESS
== END 2017-10-30 15:56 | disposition home or self-care (01) ==
LOC: CCL 05:37 → 2SW 11:27
PROVIDERS: ADMIT Internal Medicine Cardiovascular Disease; ATTEND Internal Medicine Cardiovascular Disease
DX: I48.0 Paroxysmal atrial fibrillation (principal); I89.0 Lymphedema, not elsewhere classified; E03.9 Hypothyroidism, unspecified; F32.9 Major depressive disorder, single episode, unspecified; G89.29 Other chronic pain; E66.9 Obesity, unspecified; Z68.38 Body mass index [BMI] 38.0-38.9, adult; Z88.2 Allergy status to sulfonamides; Z91.048 Other nonmedicinal substance allergy status; Z88.8 Allergy status to other drugs, medicaments and biological substances; Z79.01 Long term (current) use of anticoagulants; Z79.899 Other long term (current) drug therapy
CPT/HCPCS: 76942; 80048; 85025; 85347 ×2; 85610; 85730; 93005 ×2; 93613; 93623; 93656; 93662; C1730; C1731; C1732; C1759; C1769; G0378; 36415; 93010; J1100; J1644; J1940; J2001; J2370; J2405; J2704; J2720; J3010

== ENCOUNTER 2018-12-02 14:04 | Outpatient (CLI) | payer MEDICARE, OTHER ==
--- NOTE | 2018-12-09 13:21 | MMO ---
Bilateral MAMMO Bilat Screen [facility]. CLINICAL HISTORY: Patient is 68 years old and is seen for screening. The patient has the following family history of breast cancer: mother, at age 72. The patient has no personal history of cancer. VIEWS: The views performed were: bilateral craniocaudal with tomosynthesis; bilateral mediolateral oblique with tomosynthesis; and left exaggerated craniocaudal. MAMMOGRAM FINDINGS: There are scattered fibroglandular densities. There are benign appearing calcifications seen in both breasts. There are no suspicious masses, calcifications or areas of architectural distortion. IMPRESSION: THERE IS NO MAMMOGRAPHIC EVIDENCE OF MALIGNANCY. A ROUTINE FOLLOW-UP MAMMOGRAM IN 1 YEAR IS RECOMMENDED. THE RESULTS OF THIS EXAM WERE SENT TO THE PATIENT. ACR BI-RADS Category 2 - Benign finding MAMMOGRAPHY NOTE: 1. A negative mammogram report should not delay a biopsy if a dominant of clinically suspicious mass is present. 2. Approximately 10% to 15% of breast cancers are not detected by mammography. 3. Adenosis and dense breasts may obscure an underlying neoplasm.
== END 2018-12-02 14:05 | disposition home or self-care (01) ==
LOC: BICMAMMO 14:04
PROVIDERS: ATTEND Family Medicine
DX: Z12.31 Encounter for screening mammogram for malignant neoplasm of breast (principal); Z80.3 Family history of malignant neoplasm of breast
CPT/HCPCS: 77063; 77067

== ENCOUNTER 2019-06-02 14:21 | Emergency (ER) | payer MEDICARE, OTHER ==
[2019-06-02 17:08] LABS: #Eosinphils 0.1 thou/uL (0.0-0.7); #Lymphocytes 1.5 thou/uL (1.20-3.40); #Monocytes 0.4 thou/uL (0.11-0.59); #Neutrophils 2.2 thou/uL (1.40-6.50); %Basophils 0.9 % (0.0-1.0); %Eosinophils 1.6 % (0.0-10.0); %Lymphocytes 35.3 % (21.0-51.0); %Monocytes 8.8 % (0.0-10.0); %Neutrophils 53.4 % (42.0-75.0); Hemoglobin 15.2 g/dL (12.0-16.0); Mean Corpuscular HGB CONC 33.6 g/dL (32.0-36.0); Mean Corpuscular Hemoglobin 31.9 pg (27.0-31.0); Mean Corpuscular Volume 94.9 fL (78.0-98.0); Mean Platelet Volume 7.7 fL (7.4-10.4); Platelet Count 214 thou/uL (130-400); RBC Distribution Width 12.4 % (11.5-14.5); Red Blood Cell (RBC) Count 4.76 mill/uL (4.20-5.40); White Blood Cell (WBC) Count 4.1 thou/uL (4.8-10.8)
[2019-06-02 17:31] LABS: ALT (SGPT) 25 U/L (8-55); AST (SGOT) 23 U/L (5-34); Alkaline Phosphatase 51 U/L (40-150); Anion Gap 15 mmol/L (10-20); BUN (Urea Nitrogen) 17 mg/dL (9.8-20.1); Bilirubin, Total 0.6 mg/dL (0.2-1.2); Calc. Creatinine Clearance 0 mL/min (70-130); Calcium 9.5 mg/dL (7.8-10.44); Carbon Dioxide 23 mmol/L (23-31); Chloride 107 mmol/L (98-107); Estimated GFR-MDRD 73; Globulin 2.7 g/dL (2.4-3.5); Glucose 82 mg/dL (80-115); Potassium 4.6 mmol/L (3.5-5.1); Protein, Total 6.7 g/dL (6.0-8.3); Sodium 140 mmol/L (136-145)
--- NOTE | 2019-06-02 17:41 | ULT ---
EXAM: Right lower extremity venous ultrasound HISTORY: Right lower extremity pain and lymphedema COMPARISON: None TECHNIQUE: Multiplanar grayscale and color Doppler images were obtained in a right lower extremity ve nous ultrasound. Spectral analysis of the Doppler waveforms were performed. FINDINGS: The common femoral vein, profunda femoral vein, superficial femoral vein, and popliteal vei n are normal in appearance without visible thrombus. The right distal superficial femoral vein would not compress completely but this may be secondary to the very large right leg and secondary to pain. The other vessels demonstrate normal compression, flow, and augmentation. The posterior tibial vein and greater saphenous vein are patent without evidence of thrombus. IMPRESSION: Incomplete compression of the right distal superficial femoral vein. Flow is seen with color imaging but incomplete compression could be secondary to partial thrombus. This could also be artifactual as it is difficult to compress given the pain and large size of the right leg.
[2019-06-02] MEDS ORDERED: Acetaminophen 325 MG TAB ONE (18:20)
== END 2019-06-02 18:44 | disposition home or self-care (01) ==
LOC: ERS 14:21
DX: M25.561 Pain in right knee (principal); M79.661 Pain in right lower leg; R60.0 Localized edema; I49.9 Cardiac arrhythmia, unspecified; I48.91 Unspecified atrial fibrillation; I10 Essential (primary) hypertension; F32.9 Major depressive disorder, single episode, unspecified; Z79.899 Other long term (current) drug therapy
CPT/HCPCS: 36415; 80053; 85025; 85610

== ENCOUNTER 2019-06-23 13:49 | Outpatient (CLI) | payer MEDICARE, OTHER ==
--- NOTE | 2019-06-23 14:43 | ULT ---
Venous duplex sonogram right lower extremity HISTORY: Right leg pain and edema. FINDINGS: The right common femoral vein and greater saphenous junction were evaluated along with the femoral, deep femoral, popliteal, and posterior tibial veins. There is good color flow, compression, and augmentation. IMPRESSION: No sonographic evidence of DVT within the right lower extremity.
== END 2019-06-23 13:50 | disposition home or self-care (01) ==
LOC: BICULT 13:49
PROVIDERS: ATTEND Family Medicine
DX: M79.661 Pain in right lower leg (principal)

== ENCOUNTER 2023-04-27 13:02 | Outpatient (CLI) | payer OTHER | END 2023-04-27 13:03 | disposition home or self-care (01) | LOC: DTY/OP 13:02 | PROVIDERS: ATTEND Family Medicine | DX: E66.01 Morbid (severe) obesity due to excess calories (principal) | CPT/HCPCS: 97802 ==

== ENCOUNTER 2024-10-10 15:13 | Outpatient (CLI) | payer MEDICARE, OTHER | END 2024-10-10 15:14 | disposition home or self-care (01) | LOC: BICMAMMO 15:13 | PROVIDERS: ATTEND Family Medicine | DX: Z12.31 Encounter for screening mammogram for malignant neoplasm of breast (principal); Z80.3 Family history of malignant neoplasm of breast | CPT/HCPCS: 77063; 77067 ==

== ENCOUNTER 2025-05-14 15:22 | Outpatient (CLI) | payer MEDICARE, OTHER | END 2025-05-14 15:23 | disposition home or self-care (01) | LOC: SCSRAD 15:22 | PROVIDERS: ATTEND Family Medicine | DX: M76.61 Achilles tendinitis, right leg (principal); M76.62 Achilles tendinitis, left leg; M77.32 Calcaneal spur, left foot ==